=== PATIENT | male | born 1995 | race African-American/Black ===

== ENCOUNTER 2021-07-20 11:31 | Emergency (ER) | payer OTHER, SELFPAY ==
[2021-07-20 11:45] VITALS: BP 104/79; PULSE 61; RESP 16; TEMP 36.4; O2SAT 99
--- NOTE | 2021-07-20 12:12 | ED.URI ---
HPI - URI/Sore Throat General Chief Complaint: Upper Respiratory Infection Stated Complaint: swollen throat glands,cold,tired Time Seen by Provider: 07/20/21 12:12 Source: patient Mode of arrival: ambulatory Limitations: no limitations History of Present Illness HPI Narrative: this is 25-year-old male that presents with sore throat with some frontal sinus pressure bilateral ear pressure with a postnasal drip with a currently no fever chills, does have a history asthma but not short of breath no audible wheezing no nausea vomiting or chest pain or tightness. MD elicited complaint: sore throat Pertinent past history: sinusitis Onset (ago): day(s) Consistency: constant Severity: mild Pain scale (0-10): 4 Description of mucous: clear Able to tolerate fluids by mouth: Yes Exacerbating factors: swallowing Related Data Allergies Allergy/AdvReac Type Severity Reaction Status Date / Time No Known Allergies Allergy Verified 07/20/21 11:51 Review of Systems Review of Systems: All systems reviewed & are unremarkable except as noted in HPI and below PMFSH Past Medical History Medical History Asthma Exam Const: General: no acute distress Orientation/consciousness: patient oriented x3 HENMT: Head: normal to inspection Other: bilateral tonsillar enlargement and erythema frontal sinus pressure with palpation with bilateral ear dullness Eyes: Conjunctivae: conjunctivae normal Pupils: Equal, round and reactive pupils present Neck: Neck: normal visual inspection, no lymphadenopathy and no meningeal signs Chest: Chest palpation & inspection: normal inspection of the chest Resp: Effort & Inspection: normal respiratory effort Cardio: Rate: regular rate Rhythm: regular rhythm GI: GI Palp: Yes Soft to palpation Percussion: Yes normal to percussion Urinary Catheter: Urinary Catheter: patent and draining Back/Spine/Pelvis: Back: no CVA tenderness Skin: General skin exam: normal color Rashes: no rashes Neuro: General: patient oriented x3 and moves all extremities Extrem: General: normal to inspection and no pedal edema Psych: Mental Status: mental status grossly normal Course Course Emergency Course: strep was negative, patient has some frontal sinus pressure with bilateral ear dullness, will start Zithromax and sent to patient's pharmacy and advised to take Claritin along with Flonase. Vital Signs Vital signs: Vital Signs Temperature 36.4 C 07/20/21 11:45 Pulse Rate 61 07/20/21 11:45 Respiratory Rate 16 07/20/21 11:45 Blood Pressure 104/79 07/20/21 11:45 Pulse Oximetry 99 07/20/21 11:45 Temperature 36.4 C 07/20/21 11:45 Pulse Rate 61 07/20/21 11:45 Respiratory Rate 16 07/20/21 11:45 Blood Pressure 104/79 07/20/21 11:45 Pulse Oximetry 99 07/20/21 11:45 MDM - URI/Sore Throat Lab Data Labs: Lab Results 07/20/21 Range/Units 11:52 Grp A Beta Strep Ag Negative Critical Care Time Critical Care Time Critical Care Time: No Discharge Plan Discharge Clinical Impression: Sinusitis Qualifiers: Sinusitis location: frontal Chronicity: acute Recurrence: recurrent Qualified Code(s): J01.11 - Acute recurrent frontal sinusitis Patient Disposition: Home, Self-Care Condition: Stable Instructions: Antibiotic Form, Sinusitis (ED) Additional Instructions: Advised to continue Claritin [id number] as needed and take medicine as prescribed follow-up with primary care physician if symptoms persist or worsen. Prescriptions: New azithromycin [Zithromax Z-Jeff] 250 mg tablet See Rx Instructions .ROUTE .COMPLEX Qty: 6 RF: 0 fluticasone propionate [Flonase Allergy Relief] 50 mcg/actuation spray,suspension 2 spray intranasal DAILY Qty: 16 RF: 0 Follow-up/Referrals: UNKNOWN,DOCTOR [Primary Care Provider] - Time of Disposition: 12:18
== END 2021-07-20 12:22 | disposition home or self-care (01) ==
PROVIDERS: Emergency Provider Emergency Medicine
DX: J01.11 Acute recurrent frontal sinusitis (principal)
CPT/HCPCS: 87081; 87880; 99283

== ENCOUNTER 2021-08-01 22:05 | Emergency (ER) | payer OTHER, SELFPAY ==
--- NOTE | ~2021-08-01 | XR_ITS ---
XR chest 1V portable DATE: 08/01/2021 22:53 INDICATION: Chest congestion, chest tightness TECHNIQUE: Portable AP chest on 08/01/2021 at 2252 hours COMPARISON: None FINDINGS: Normal heart size. No hilar or mediastinal enlargement. No pulmonary infiltrate or consolid ation, pleural effusion or pulmonary vascular congestion or pneumothorax. Included skeletal structure s are unremarkable. IMPRESSION: No active cardiopulmonary disease Reviewed, dictated and finalized at location A. O VIDEO TECH
[2021-08-01 22:15] VITALS: BP 116/71; PULSE 67; RESP 16; TEMP 36; O2SAT 99
[2021-08-01 22:20] VITALS: O2SAT 99
--- NOTE | 2021-08-01 22:38 | ED.GENADULT ---
HPI - General Adult General Chief complaint: Unspecified Stated complaint: wheezing, tired Time Seen by Provider: 08/01/21 22:10 Source: patient, RN notes reviewed and old records reviewed Mode of arrival: ambulatory Limitations: no limitations History of Present Illness complaint: cough and wheezing x worse this PM. Onset (ago): day(s) (2) Location: chest Severity: moderate Quality: other (pt had no acut pain) Relieving factors: none Exacerbating factors: none Associated symptoms: cough Related Data Allergies Allergy/AdvReac Type Severity Reaction Status Date / Time No Known Allergies Allergy Verified 08/01/21 22:21 Review of Systems Review of Systems: All systems reviewed & are unremarkable except as noted in HPI and below [facility] Past Medical History Medical History (Updated 09/08/21 @ 07:53 by Ange Ellsworth MD) Asthma Bronchitis Exam Const: General: cooperative, healthy appearing and no acute distress Nutritional Appearance: thin Orientation/consciousness: oriented to person and patient oriented x3 Limitations: no limitations HENMT: Head: normal to inspection, normocephalic and atraumatic Ears: hearing grossly normal bilaterally, external ears normal and TM's normal bilaterally General nose exam: Normal external nose present and Normal nares present Face and sinus: normal facial exam and sinuses nontender Mouth: Yes Normal oral and palatal mucosa present, Yes lip normal and Yes tongue normal Teeth and gingiva: dentition normal Throat: posterior oropharynx abnormal (minimal pharyngeal redness.) Eyes: General: appearance normal, both eyes and all related structures Visual Velez: normal visual velez by confrontation Eyelids: eyelids normal Conjunctivae: conjunctivae normal Sclera: sclerae normal Cornea: corneas normal Pupils: Equal, round and reactive pupils present and Pupils normal by confrontation EOM: EOMs intact bilaterally Neck: Neck: normal visual inspection, full ROM, no lymphadenopathy, no meningeal signs and trachea midline Chest: Chest palpation & inspection: normal inspection of the chest Resp: Effort & Inspection: normal respiratory effort and able to speak in complete sentences Auscultation: crackles, rales, rhonchi and wheezes Cardio: Jugular venous distension: no JVD Rate: regular rate Rhythm: regular rhythm GI: Inspection: normal to inspection GI Palp: Yes abdominal tenderness Auscultation: normal bowel sounds : Male General Exam: Yes normal external exam Back/Spine/Pelvis: Back: no CVA tenderness Thoracic/Lumbar Spine: thoracic and lumbar spine normal to inspection and thoraco-lumbar ROM normal Skin: General skin exam: normal color, no rashes or lesions noted and turgor normal Rashes: no rashes Neuro: General: oriented to time, patient oriented x3 and moves all extremities Cranial nerves: Yes CN's II-XII intact bilaterally, Yes Facial sensation intact/muscles of mastication intact, Yes Intact sense of smell present, Yes Equal, round and reactive pupils present, Yes Normal accommodation reflex present and Yes Bilaterally intact EOM present Cognition (Neuro): normal cognition Speech: normal speech Gait exam (Neuro): Normal gait present Motor exam (neuro): 5/5 motor strength present throughout Sensory Exam: normal sensation Extrem: General: normal to inspection, full ROM and normal exam except as noted Psych: Appearance: grossly normal and well kempt Mental Status: mental status grossly normal Affect: normal affect Attitude: cooperative Thought process: Normal thought process present Thought content: Yes Normal thought content present Insight: Good insight present (Psych) Judgement: Good judgement present (Psych) Course Course Emergency Course: Pt was stable in the ED with no acute resp distress and less wheezing. Reevaluation(s) Reevaluation #1: VSS Date: 08/01/21 Time: 22:21 Vital Signs Vital signs: Vital Signs Temperature 36.0 C L 08/01/21 22:
[2021-08-01] MEDS: ALBUTEROL SULFATE (*SP) INHALER 4 PUFF INHALATION (22:54)
[2021-08-01 22:55] VITALS: PULSE 95; RESP 16; O2SAT 99
[2021-08-01 22:58] VITALS: PULSE 96; RESP 16
[2021-08-01 23:06] VITALS: BP 112/67; PULSE 82; RESP 14; TEMP 36.7; O2SAT 99
== END 2021-08-01 23:07 | disposition home or self-care (01) ==
PROVIDERS: Emergency Provider Emergency Medicine
DX: J40 Bronchitis, not specified as acute or chronic (principal); J45.21 Mild intermittent asthma with (acute) exacerbation
CPT/HCPCS: 71045; 94640; 99283; A9270

== ENCOUNTER 2021-10-31 23:16 | Emergency (ER) | payer OTHER, SELFPAY ==
--- NOTE | 2021-10-31 23:21 | ED.NECK ---
HPI - Neck Pain/Injury General Chief Complaint: Unspecified Stated Complaint: neck pain Time Seen by Provider: 10/31/21 23:21 Source: patient Mode of arrival: ambulatory History of Present Illness HPI Narrative: 26-year-old male a history of asthma, anxiety/ depression, started medications( Rocephn and Doxycycline) for STD 4 days ago following which he developed -- food sticking in his throat with burning sensation extending from neck through the substernal area into his epigastrium. odynophagia -- gastric reflux symptoms which are worse after eating. -- throat pain Onset (ago): day(s) ( symptoms started 4 days ago) Place: home Severity: mild Quality: burning Duration: constant Relieving factors: none Exacerbating factors: none Context: sore throat Associated symptoms: difficulty swallowing Treatments prior to arrival: none Related Data Allergies Allergy/AdvReac Type Severity Reaction Status Date / Time No Known Allergies Allergy Verified 10/31/21 23:30 Review of Systems Review of Systems: All systems reviewed & are unremarkable except as noted in HPI and below Constitutional: Constitutional: Reports as per HPI and Reports no additional constitutional complaints Eyes: Eyes: Reports as per HPI and Reports no additional eye complaints ENT: Reports system reviewed and no additional complaints, except as documented, Reports as per HPI and Reports sore throat Comments: sore throat, odynophagia, epigastric pain ER radiating to the esophagus and throat Cardiovascular: Cardiovascular: Reports as per HPI and Reports no additional cardiovascular complaints Respiratory: Respiratory: Reports as per HPI and Reports no additional respiratory complaints Gastrointestinal: Gastrointestinal: Reports as per HPI and Reports no additional gastrointestinal complaints Genitourinary: Genitourinary: Reports no additional male genitourinary complaints Comments: no penile discharge noted no skin breakdown in the groin Musculoskeletal: Musculoskeletal: Reports no additional musculoskeletal complaints Integumentary/Breasts: Skin/Breast: Reports system reviewed and no additional complaints, except as docu and Reports as per HPI Neurologic: Reports system reviewed and no additional complaints, except as documented and Reports as per HPI Psychiatric: Psychiatric: Reports no additional psychiatric complaints and Reports as per HPI Endocrine: Endocrine: Reports no additional endocrine complaints and Reports as per HPI Hematologic/Lymphatic: Hematologic/Lymphatic: Reports no additional hematologic/lymphatic complaints and Reports as per HPI Allergic/Immunologic: Allergic/Immunologic: Reports no additional allergic/immunologic complaints and Reports as per HPI PMFSH Past Medical History Medical History Asthma Bronchitis Social History Social History Smoking status: Never smoker Alcohol intake: current Alcohol use details: social Exam Const: General: healthy appearing and no acute distress Nutritional Appearance: well nourished Orientation/consciousness: patient oriented x3 Limitations: no limitations HENMT: Head: normal to inspection Ears: external ears normal, TM's normal bilaterally and EAC's normal General nose exam: Normal external nose present and Normal nares present Face and sinus: normal facial exam and sinuses nontender Mouth: Yes Normal oral and palatal mucosa present, Yes lip normal and Yes moist mucous membranes Teeth and gingiva: dentition normal Other: bilateral tonsillar swelling with erythema. No exudate.. Regional lymphadenopathy. pharyngeal erythema Eyes: Conjunctivae: conjunctivae normal Pupils: Equal, round and reactive pupils present EOM: EOMs intact bilaterally Neck: Neck: normal visual inspection and lymphadenopathy Other: tender upper cervical lymph nodes Chest:
[2021-10-31 23:31] VITALS: BP 100/87; PULSE 77; RESP 17; TEMP 36.9; O2SAT 98
[2021-11-01 00:15] VITALS: BP 140/93; PULSE 62; RESP 17; TEMP 36.3; O2SAT 100
== END 2021-11-01 00:15 | disposition home or self-care (01) ==
PROVIDERS: Emergency Provider Internal Medicine Critical Care Medicine; PCP Nurse Practitioner Family
DX: K21.9 Gastro-esophageal reflux disease without esophagitis (principal); J02.9 Acute pharyngitis, unspecified
CPT/HCPCS: 99283

== ENCOUNTER 2021-11-15 13:01 | Outpatient (CLI) | payer OTHER, SELFPAY ==
[2021-11-15 13:15] LABS: Basophils Absolute Auto 0.01 K/mm3 (0.00-0.10); Basophils Percent Auto 0.1 % (0.0-1.0); Eosinophils Absolute Auto 0.27 K/mm3 (0.02-0.50); Eosinophils Percent Auto 3.9 % (1.0-6.0); Hematocrit 41.4 % (40.0-54.0); Hemoglobin 13.4 g/dL (14.0-18.0); Immature Granulocyte Absolute 0.01 K/mm3 (0.00-0.00); Immature Granulocyte Percent A 0.1 % (0.0-0.0); Lymphocytes Absolute Auto 2.82 K/mm3 (1.10-4.50); Lymphocytes Percent Auto 40.9 % (18.0-42.0); Mean Corpuscular HGB Conc 32.4 g/dL (32.0-36.0); Mean Corpuscular Hemoglobin 29.1 pg (27.0-31.0); Mean Corpuscular Volume 89.8 fL (78.0-102.0); Mean Platelet Volume 9.6 fl (8.7-11.0); Monocytes Absolute Auto 0.59 K/mm3 (0.10-0.90); Monocytes Percent Auto 8.6 % (2.0-11.0); Neutrophils Absolute Auto 3.2 K/mm3 (1.7-7.2); Neutrophils Percent Auto 46.4 % (50.0-70.0); Platelet Count Result 228 K/mm3 (150-420); Red Blood Count 4.61 M/mm3 (4.70-6.10); Red Cell Distribution Width 12.4 % (11.6-14.4); White Blood Count 6.9 K/mm3 (4.8-10.8)
[2021-11-15 13:29] LABS: Alanine Aminotransferase 12 U/L (16-63); Albumin Level 4.2 g/dL (3.4-5.0); Alkaline Phosphatase 58 U/L (46-116); Anion Gap 3 mmol/L (8-16); Aspartate Amino Transferase 18 U/L (15-37); Bilirubin,Total 1.6 mg/dL (0.00-1.00); Blood Urea Nitrogen 20 mg/dL (7-18); Calcium 9.2 mg/dL (8.5-10.1); Carbon Dioxide 33 mmol/L (21-32); Chloride 105 mmol/L (98-108); Estimated Glomerular Filt Rate > 60; Glucose 77 mg/dL (70-99); Osmolality Calculated 293 mOsm/kg (285-295); Potassium 4.1 mmol/L (3.5-5.1); Sodium 141 mmol/L (136-145); Total Protein 7.7 g/dL (6.4-8.2)
[2021-11-15 13:59] LABS: HIV 1 P24 AG Negative (Negative); HIV 1/2 AB Negative (Negative)
== END 2021-11-15 13:02 | disposition home or self-care (01) ==
LOC: CHSLAB 13:03
PROVIDERS: PCP Nurse Practitioner Family; Visit Provider Nurse Practitioner Family
DX: Z72.51 High risk heterosexual behavior (principal)
CPT/HCPCS: 36415; 80053; 85025; 86703; 86803; 87491; 87591; 87661

== ENCOUNTER 2021-12-28 13:18 | Emergency (ER) | payer OTHER, SELFPAY ==
--- NOTE | 2021-12-28 13:33 | ED.URI ---
HPI - URI/Sore Throat General Chief Complaint: Unspecified Stated Complaint: chills, stiffness in body, fatigue Time Seen by Provider: 12/28/21 13:30 Source: patient Mode of arrival: ambulatory History of Present Illness MD elicited complaint: fever, sore throat and rhinorrhea Onset (ago): day(s) (4) Consistency: constant Severity: moderate Able to tolerate fluids by mouth: Yes Exacerbating factors: exertion Relieving factors: nothing Associated symptoms: chills, myalgias, headache, nausea and diarrhea Treatments prior to arrival: none Related Data Home Medications Medication Instructions Recorded Confirmed No Home Medications 12/28/21 12/28/21 Allergies Allergy/AdvReac Type Severity Reaction Status Date / Time No Known Allergies Allergy Verified 12/28/21 13:39 Review of Systems Review of Systems: All systems reviewed & are unremarkable except as noted in HPI and below PMFSH Past Medical History Medical History Asthma Bronchitis Social History Social History Smoking status: Never smoker Alcohol intake: current Alcohol use details: social Exam Const: General: no acute distress, alert and ill appearing acutely Nutritional Appearance: well nourished and thin Orientation/consciousness: patient oriented x3 Limitations: no limitations HENMT: Head: normal to inspection Ears: external ears normal Eyes: Conjunctivae: conjunctivae normal Pupils: Equal, round and reactive pupils present EOM: EOMs intact bilaterally Neck: Neck: normal visual inspection Resp: Effort & Inspection: normal respiratory effort Auscultation: clear to auscultation bilaterally Cardio: Rate: regular rate Rhythm: regular rhythm GI: GI Palp: Yes Soft to palpation and No Tenderness to palpation present (GI) Auscultation: normal bowel sounds Back/Spine/Pelvis: Cervical Spine: cervical ROM normal Thoracic/Lumbar Spine: thoraco-lumbar ROM normal Skin: General skin exam: normal color Rashes: no rashes Neuro: General: patient oriented x3, moves all extremities, no focal motor deficits and CN's II-XI intact bilaterally Speech: normal speech Gait exam (Neuro): Normal gait present Extrem: General: normal to inspection and no clubbing, cyanosis or edema Psych: Mental Status: mental status grossly normal Affect: normal affect Attitude: cooperative Course Vital Signs Vital signs: Vital Signs Temperature 36.7 C 12/28/21 13:36 Pulse Rate 65 12/28/21 13:36 Respiratory Rate 17 12/28/21 13:36 Blood Pressure 116/72 12/28/21 13:36 Pulse Oximetry 99 12/28/21 13:36 Oxygen Delivery Room Air 12/28/21 13:36 Temperature 36.4 C L 12/28/21 14:52 Pulse Rate 70 12/28/21 14:52 Respiratory Rate 18 12/28/21 14:52 Blood Pressure 121/76 12/28/21 14:52 Pulse Oximetry 100 12/28/21 14:52 Oxygen Delivery Room Air 12/28/21 14:52 MDM - URI/Sore Throat Differential Diagnosis Differential diagnosis: Likely upper respiratory infection, viral infection, bronchitis, influenza and other (COVID) Lab Data Attestation: I reviewed the patient's lab results. Labs: Lab Results 12/28/21 12/28/21 Range/Units 13:35 13:41 Influenza A (RT-PCR) Negative (Negative) Influenza B (RT-PCR) Negative (Negative) SARS-CoV-2 RNA (RT-PCR) Negative (Negative) Discharge Plan Discharge Clinical Impression: Viral upper respiratory infection Patient Disposition: Home, Self-Care Condition: Stable Instructions: Viral Syndrome (ED) Additional Instructions: Get plenty of rest, drink plenty of fluids. Treat her symptoms with [id number] medications as needed. Follow-up with your primary care physician any worsening symptoms. Prescriptions: No Action No Home Medications Follow-up/Referrals: Savana Connell NP [Primary Care Provider] - Jose Mcdonald
[2021-12-28 13:36] VITALS: BP 116/72; PULSE 65; RESP 17; TEMP 36.7; O2SAT 99
[2021-12-28 14:22] LABS: Influenza A QL RT-PCR Negative (Negative); Influenza B QL RT-PCR Negative (Negative)
[2021-12-28 14:25] LABS: SARS-CoV-2 RNA PCR Negative (Negative)
[2021-12-28 14:52] VITALS: BP 121/76; PULSE 70; RESP 18; TEMP 36.4; O2SAT 100
== END 2021-12-28 14:53 | disposition home or self-care (01) ==
PROVIDERS: Emergency Provider Emergency Medicine; PCP Nurse Practitioner Family
DX: J06.9 Acute upper respiratory infection, unspecified (principal); Z20.822 Contact with and (suspected) exposure to COVID-19
CPT/HCPCS: 87502; 99283; C9803; U0003; U0005

== ENCOUNTER 2022-01-22 13:48 | Outpatient (NON) | payer OTHER, SELFPAY | END 2022-01-22 13:49 | disposition home or self-care (01) | LOC: CHSLAB 13:50 | PROVIDERS: Visit Provider Nurse Practitioner Family | DX: Z72.51 High risk heterosexual behavior (principal) | CPT/HCPCS: 87491; 87591; 87661 ==

== ENCOUNTER 2022-02-03 15:22 | Emergency (ER) | payer OTHER, SELFPAY ==
--- NOTE | ~2022-02-03 | XR_ITS ---
EXAMINATION: XR chest 1V portable Exam Date/Time: 02/03/2022 17:18 CDT HISTORY: cough Comparison: 08/01/2021. RESULT: Lines, tubes, and devices: None. Lungs and pleura: Clear. Cardiomediastinal silhouette: Stable. Other: No acute osseous or upper abdominal finding. IMPRESSION: No acute cardiopulmonary process. Reviewed, dictated and finalized at location K.
[2022-02-03 15:30] VITALS: BP 99/67; PULSE 60; RESP 18; TEMP 37.9; O2SAT 98
--- NOTE | 2022-02-03 15:37 | ED.FEVER ---
HPI - Fever General Chief Complaint: Upper Respiratory Infection Stated Complaint: Amb Time Seen by Provider: 02/03/22 15:23 Source: patient Mode of arrival: EMS History of Present Illness HPI Narrative: 26-year-old male with a history of recent gonococcal infection presents to the ER with a 2 day history of -- fever with a T-max of 102? -- body ache and malaise -- abdominal pain nausea -- headache MD elicited complaint: fever, malaise and weakness Onset (ago): day(s) ( started 2 days ago) Exacerbating factors: nothing Relieving factors: nothing Associated symptoms: myalgias, headache, sore throat, cough, abdominal pain, nausea, diarrhea and back/flank pain Treatments prior to arrival fever: none Related Data Home Medications Medication Instructions Recorded Confirmed No Home Medications 02/03/22 02/03/22 Allergies Allergy/AdvReac Type Severity Reaction Status Date / Time No Known Allergies Allergy Verified 02/03/22 15:28 Review of Systems Review of Systems: All systems reviewed & are unremarkable except as noted in HPI and below Constitutional: Constitutional: Reports as per HPI and Reports no additional constitutional complaints Eyes: Eyes: Reports as per HPI and Reports no additional eye complaints ENT: Reports system reviewed and no additional complaints, except as documented and Reports sore throat Cardiovascular: Cardiovascular: Reports as per HPI and Reports no additional cardiovascular complaints Respiratory: Respiratory: Reports as per HPI and Reports no additional respiratory complaints Gastrointestinal: Gastrointestinal: Reports as per HPI, Reports no additional gastrointestinal complaints, Reports diarrhea and Reports nausea Genitourinary: Genitourinary: Reports no additional male genitourinary complaints Musculoskeletal: Musculoskeletal: Reports no additional musculoskeletal complaints and Reports as per HPI Integumentary/Breasts: Skin/Breast: Reports system reviewed and no additional complaints, except as docu and Reports as per HPI Neurologic: Reports system reviewed and no additional complaints, except as documented and Reports as per HPI Psychiatric: Psychiatric: Reports no additional psychiatric complaints and Reports as per HPI Endocrine: Endocrine: Reports no additional endocrine complaints and Reports as per HPI Hematologic/Lymphatic: Hematologic/Lymphatic: Reports no additional hematologic/lymphatic complaints and Reports as per HPI Allergic/Immunologic: Allergic/Immunologic: Reports no additional allergic/immunologic complaints and Reports as per HPI [facility] Past Medical History Medical History (Updated 02/03/22 @ 18:12 by Cristiano Jacobs MD) Asthma Bronchitis Gonococcus Social History Social History Smoking status: Never smoker Alcohol intake: current Alcohol use details: social Exam Const: General: ill appearing Orientation/consciousness: patient oriented x3 Limitations: no limitations Other: febrile with a T-max of 102? HENMT: Head: normal to inspection Ears: external ears normal General nose exam: Normal external nose present Face and sinus: normal facial exam Mouth: Yes Normal oral and palatal mucosa present ( pharyngeal erythema) Throat: posterior oropharynx normal ( pharyngeal erythema) Eyes: Conjunctivae: conjunctivae normal Pupils: Equal, round and reactive pupils present EOM: EOMs intact bilaterally Direct Ophthalmoscopy: no photophobia Neck: Neck: normal visual inspection, no lymphadenopathy and no meningeal signs Chest: Chest palpation & inspection: normal inspection of the chest Resp: Effort & Inspection: normal respiratory effort Auscultation: clear to auscultation bilaterally Cardio: Rate: regular rate Rhythm: regular rhythm GI: GI Palp: Yes Soft to palpation Auscultation: normal bowel sounds : General: Yes bladder normal to palpation Male General Exam: Yes lynn
[2022-02-03] MEDS: KETOROLAC 30 MG/ML VIAL (*BKC) IM (16:10)
[2022-02-03 16:22] LABS: Hematocrit 40.3 % (40.0-54.0); Hemoglobin 12.8 g/dL (14.0-18.0); Mean Corpuscular HGB Conc 31.8 g/dL (32.0-36.0); Mean Corpuscular Hemoglobin 28.1 pg (27.0-31.0); Mean Corpuscular Volume 88.6 fL (78.0-102.0); Mean Platelet Volume 10.1 fl (8.7-11.0); Platelet Count Result 167 K/mm3 (150-420); Red Blood Count 4.55 M/mm3 (4.70-6.10); Red Cell Distribution Width 12.1 % (11.6-14.4)
[2022-02-03 16:32] LABS: Lactic Acid Reflex 1.1 mmol/L (0.4-2.0)
[2022-02-03 16:48] LABS: Albumin Level 3.9 g/dL (3.4-5.0); Alkaline Phosphatase 47 U/L (46-116); Anion Gap 8 mmol/L (8-16); Aspartate Amino Transferase 26 U/L (15-37); Bilirubin,Total 0.7 mg/dL (0.00-1.00); Blood Urea Nitrogen 17 mg/dL (7-18); Calcium 8.5 mg/dL (8.5-10.1); Carbon Dioxide 28 mmol/L (21-32); Chloride 101 mmol/L (98-108); Estimated CRCL calculation 75 ml/min; Estimated Glomerular Filt Rate > 60; Glucose 126 mg/dL (70-99); Lipase 93 U/L (73-393); Osmolality Calculated 287 mOsm/kg (285-295); Potassium 3.5 mmol/L (3.5-5.1); Sodium 137 mmol/L (136-145); Total Protein 6.9 g/dL (6.4-8.2)
[2022-02-03 16:50] LABS: SARS-CoV-2 RNA PCR Positive (Negative)
[2022-02-03 17:00] LABS: Influenza A QL RT-PCR Negative (Negative); Influenza B QL RT-PCR Negative (Negative); Strep Group A RT-PCR Not Detected (Negative)
[2022-02-03 17:37] LABS: Add Urine Microscopic? YES; Appearance Urine Clear (Clear); Bilirubin Urine Negative (Negative); Blood Urine Negative (Negative); Color Urine Yellow (Yellow); Glucose Urine UA Negative (Negative); Ketones Urine Trace (Negative); Leukocyte Esterase Ur Negative (Negative); Nitrate Urine Negative (Negative); Protein Urine 1+ (Negative); Specific Grav Ur >= 1.030 (1.010-1.020); Urobilinogen Urine 0.2 mg/dL (0.2-1.0)
[2022-02-03 18:19] LABS: Mucus Urine Heavy /lpf; RBC Urine None seen /hpf (0-2); WBC Urine None seen /hpf (0-3)
[2022-02-03 18:21] VITALS: BP 124/75; PULSE 70; RESP 16; TEMP 36.4; O2SAT 99
[2022-02-03 18:34] LABS: Band Neutrophils Percent 0 % (0-6); Basophils Percent Manual 0 % (0-1); Eosinophils Percent Manual 0 % (1-6); Lymphocytes Absolute Manual 1.05 K/mm3 (1.1-4.5); Lymphocytes Percent Manual 35 % (18-44); Monocytes Absolute Manual 0.75 K/mm3 (0.1-0.90); Monocytes Percent Manual 25 % (3-9); Neutrophils Percent Manual 40 % (46-73); Platelet Estimate Adequate (Adequate); Total Cells Counted 100
--- NOTE | 2022-02-03 18:42 | PC.NURSE ---
1745 PT SLEEPING EASILY AWOKEN WHEN RN ENTERS ROOM. NO FURTHER COMPLAINTS AT THIS TIME.
[2022-02-03 20:12] LABS: Alanine Aminotransferase 18 U/L (16-63)
== END 2022-02-03 18:22 | disposition home or self-care (01) ==
PROVIDERS: Emergency Provider Internal Medicine Critical Care Medicine; PCP Nurse Practitioner Family
DX: U07.1 COVID-19 (principal); N18.9 Chronic kidney disease, unspecified
CPT/HCPCS: 36415; 71045; 80053; 81001; 83605; 83690; 85025; 87502; 87651; 96372; 99283; C9803; J1885; U0003; U0005